=== PATIENT | female | born 1995 | race Caucasian/White ===

== ENCOUNTER 2022-07-31 14:21 | Inpatient (IN) ==
[2022-08-05] MEDS ORDERED: OXYTOCIN 30 UNITS/500 ML BAG IV PRN ×3 (07:43→23:51)
[2022-08-05] MEDS ORDERED: LIDOCAINE 1% LOCAL 20 ML VIAL INFIL PRN (07:43)
[2022-08-05] MEDS ORDERED: PENICILLIN G POTASSIUM 6 MU in DEXTROSE 5% 250 ML IV STA (07:43)
[2022-08-05] MEDS ORDERED: Patient's HEIGHT &/or WEIGHT Needed SCH (08:00)
--- NOTE | 2022-08-05 08:04 | History & Physical Report ---
Date of Service August 05, 2022 Assessment & Plan (1) Supervision of normal intrauterine in primigravida: Plan: Admit for IOL. Pitocin. Plans for epidural. Penicillin for GBS prophylaxis. Admission and Anticipated Discharge Date Admission Date: August 05, 2022 History of Present Illness Chief Complaint: IOL Primary Care Provider: Savannah Maharaj PA-C 27yo @ 40 5/, here for IOL. Small Choroid Plexus Cyst on Anatomy *MFM consult no CERTIFIED MEDICINE AIDE seen Obesity Protocol - BMI 36 *salesforce trainer consult - pt declines *offer a sleep medicine consult if the patient snores - pt declines *Weekly NST's at 36 weeks *Growth US Q 4 wks starting at 32wks. GBS Positive - Treat in labor Allergies Allergy/AdvReac Type Severity Reaction Status Date / Time bee venom Allergy Numbness Uncoded 08/02/22 09:31 Home Medications Medication Instructions Recorded Confirmed Type prenat.vits,osman,ava-stbv-kbbib 1 tab PO DAILY 03/26/22 08/04/22 History Patient History Medical History Gallbladder calculus without cholecystitis and no obstruction Surgical History History of placement of ear tubes S/P tonsillectomy and adenoidectomy Family History Father Heart disease Cancer kidney Grandmother (Maternal) Thyroid disorder Grandmother (Paternal) Cancer Diabetes Grandfather (Paternal) Diabetes Uncle Colorectal cancer GREAT Social History Smoking Status: Never smoker Second Hand Exposure: No; Hx Alcohol Use: No Hx Substance Use: No Preferred Language: Libyan Communication Ability: Effective Food Taster Required: No Beliefs That Will Affect Care: None marital status: marital status details: Claudio (27) [phone] Current Living Situation: Spouse Current Living Situation Comment: lives with spouse, no pets. current occupational status: employed and unemployed current occupation: healthcare Feels Safe at Home: Yes during the past year weight has: remained stable Review of Systems All systems reviewed & are unremarkable except as noted in HPI & below Physical Exam Physical Exam: FHT Cat 1 [place] none SVE 3-4/70/-1 Constitutional: WD/WN, vitals as above Respiratory: normal respiratory effort, lungs clear to auscultation no respiratory distress Cardiovascular: Rate/Rhythm: regular rate and regular rhythm Gastrointestinal (Abdomen): Inspection/Auscultation: abdomen normal to inspection Percussion/Palpation: abdomen soft; abdomen nontender Gravid. No s/s chorio or abruption. Skin: no rashes, warm and dry Psychiatric: A+Ox3, euthymic affect Results & Data ([facility]) Vital Signs (Past 12 Hours) Vital Signs Pulse BP 08/05/22 07:49 93 H 132/82 Coding Level of Care Code None Diagnoses Supervision of normal intrauterine in primigravida Z34.00
[2022-08-05 08:16] LABS: Hematocrit (blood only) 40.2 % (37.0-47.0); Hemoglobin 13.7 g/dl (12.0-16.0); Mean Corpuscular Hemoglobin 30.8 pg (25.0-34.0); Mean Corpuscular Hgb Conc 34.1 g/dL (32.0-36.0); Mean Corpuscular Volume 90.3 fL (80.0-100.0); Mean Platelet Volume 9.6 fL (9.4-12.4); Platelet Count 347 K/uL (130-400); RDW Coefficient of Variation 14.5 % (11.5-14.5); RDW Standard Deviation 47.7 fL (36.4-46.3); Red Blood Count 4.45 M/uL (4.20-5.40); White Blood Count 10.96 K/ul (4.8-10.8)
[2022-08-05] MEDS: LACTATED RINGER'S 1,000 ML IV PRN ×2 (08:26→15:45)
[2022-08-05] MEDS: PENICILLIN G POTASSIUM 3 MU in DEXTROSE 5% 100 ML IV PRN ×2 (12:25→16:43)
--- NOTE | 2022-08-05 15:20 | Labor Progress Brief Note ---
Date of Service August 05, 2022 Subjective comfortable. notes ctx. Assessment & Plan (1) Encounter for induction of labor: (2) GBS (group B Streptococcus carrier), +RV culture, currently : Plan see how arom helps labor pattern. c/w pitocin. fhts categ 1. Admission and Anticipated Discharge Date Admission Date: August 05, 2022 Physical Exam Constitutional: WD/WN, vitals as above Genitourinary: Manual OB Exam: + cervical dilation 4 cm, + cervical effacement 80%, + station -2 and + amniotic fluid (arom) clear OB Exam Monitor Tracing: + external FHT monitor used, + external uterine monitor used (q2-8 pit at 17), + category I and + normal FHT variability Results & Data ([facility]) Vital Signs (Past 12 Hours) Vital Signs Temp Pulse Resp BP 08/05/22 08:40 98.2 F 93 H 20 08/05/22 15:10 138/99 08/05/22 14:09 81 08/05/22 14:09 143/84 H 08/05/22 13:10 75 08/05/22 13:10 132/85 08/05/22 12:09 88 08/05/22 12:09 133/83 08/05/22 12:09 91 H 08/05/22 12:09 131/81 08/05/22 11:58 64 08/05/22 11:58 132/82 08/05/22 11:10 76 08/05/22 11:10 118/68 08/05/22 10:08 77 08/05/22 10:08 131/86 08/05/22 09:08 83 08/05/22 09:08 146/84 H 08/05/22 07:49 98.2 F 93 H 20 132/82 Coding Level of Care Code None Diagnoses Encounter for induction of labor Z34.90 GBS (group B Streptococcus carrier), +RV culture, currently O99.820
[2022-08-05] MEDS ORDERED: ePHEDrine sulfate 50 MG/ML AMP ONE (15:22)
[2022-08-05] MEDS ORDERED: SODIUM CHLORIDE 0.9% INJ 10 ML VIAL ONE (15:22)
[2022-08-05] MEDS ORDERED: BUPIVACAINE 0.25% 30 ML VIAL ONE (15:22)
[2022-08-05] MEDS ORDERED: fentaNYL citrate 100 MCG/2 ML VIAL ONE ×2 (15:22→21:42)
[2022-08-05] MEDS ORDERED: fentaNYL 2MCG/ML ROPIVACAINE 1.25MG/ML 100 ML BAG EPI ONE (15:23)
[2022-08-05] MEDS ORDERED: LIDOCAINE 2%/EPINEPHRINE 1:200,000 20 ML SDV ONE ×2 (15:23→21:42)
[2022-08-05] MEDS ORDERED: NALOXONE HCL 1 MG in SODIUM CHLORIDE 0.9% 1000ML 1,000 ML IV PRN (15:28)
[2022-08-05] MEDS ORDERED: fentaNYL 2MCG/ML ROPIVACAINE 1.25MG/ML 100 ML BAG EPI PRN (15:28)
[2022-08-05] MEDS ORDERED: ePHEDrine sulfate 50 MG/ML AMP IV PRN (15:28)
[2022-08-05] MEDS ORDERED: NALOXONE HCL 0.4 MG/1 ML VIAL/CARP IV PRN (15:28)
[2022-08-05] MEDS ORDERED: diphenhydrAMINE 50 MG/ML VIAL IV PRN (15:28)
[2022-08-05] MEDS ORDERED: NALBUPHINE HCL INJ 10 MG/ML AMP IV PRN (15:28)
--- NOTE | 2022-08-05 15:28 | Anesthesiology Consultation ---
Date of Service August 05, 2022 Assessment & Plan ASA ASA2 Proposed Anesthesia Anesthesia Type: Labor Epidural Risk / Benefits Reviewed With: PT / POA / Parent / Guardian, Accepts Plan and Informed Consent Obtained History Height/Weight Height: 5 ft 3 in Weight: 95.708 kg Allergies Allergy/AdvReac Type Severity Reaction Status Date / Time bee venom Allergy Numbness Uncoded 08/02/22 09:31 Medications Home Medications Medication Instructions Recorded Confirmed Last Taken prenat.vits,osman,cez-hvfj-bdurl 1 tab PO DAILY 03/26/22 08/05/22 08/04/22 Active Medications Generic Name Dose Route Start Last Admin Trade Name Freq PRN Reason Stop Dose Admin Oxytocin 30 units in 500 mls @ 17 mls/hr 08/05/22 07:43 08/05/22 14:00 Pitocin IV 08/07/22 07:42 1.02 units/hr .Q24H PRN 17 mls/hr Labor Induction/Augmentation Titration Protocol 1.02 UNITS/HR Lactated Ringer's 1,000 mls @ 125 mls/hr 08/05/22 07:43 08/05/22 16:07 Lr IV 08/07/22 07:42 125 mls/hr .Q8H PRN Infusion L&D Protocol Protocol Penicillin G Potassium 3 mu/ 106 mls @ 100 mls/hr 08/05/22 10:43 08/05/22 12:25 Dextrose IV 08/15/22 10:42 100 mls/hr Q4H PRN Administration GBS(+) Until Delivery Past Medical History Medical History Gallbladder calculus without cholecystitis and no obstruction Exercise / Class Metabolic Activity II 4-5 Yardwork/Stairs/Walk up hill Past Family History Family History Father Heart disease Cancer kidney Grandmother (Maternal) Thyroid disorder Grandmother (Paternal) Cancer Diabetes Grandfather (Paternal) Diabetes Uncle Colorectal cancer GREAT Past Surgical History Surgical History History of placement of ear tubes S/P tonsillectomy and adenoidectomy Past Anesthesia History No Hx of Anesthesia Complications and No Family Hx of Anesthesia Complications History of PONV No Hx of PONV and No Hx of Motion Sickness Social History Smoking Status: Never smoker Hx Alcohol Use: No Hx Substance Use: No substance use type: does not use Review of Systems denies fever/cough/ colds/ chest pain/ SOB/ ANGEL denies ANGEL Physical Exam Vital Signs Last Vital Signs Temp 36.8 C 08/05/22 08:40 Pulse 99 H 08/05/22 16:30 Resp 20 08/05/22 08:40 BP 145/80 H 08/05/22 16:29 Pulse Ox 100 08/05/22 16:30 ENMT Mouth: no TMJ abnormality and no dentition abnormality Thyromental Distance: > or= 3.5 Finger Breadths Mallampati Class: II Neck neck extension not limited Respiratory normal respiratory effort; no respiratory distress Auscultation: lungs clear to auscultation bilaterally Cardiovascular Rate/Rhythm: regular rate and regular rhythm Neurologic moves all extremities Psychiatric Orientation: alert and oriented x 3 Testing Laboratory Results 08/05/22 07:56 Blood Type O Positive 08/05/22 07:56 Antibody Screen NEGATIVE 08/05/22 07:56
--- NOTE | 2022-08-05 20:07 | Labor Progress Brief Note ---
Date of Service August 05, 2022 Subjective feeling some pressure Assessment & Plan (1) Encounter for induction of labor: (2) GBS (group B Streptococcus carrier), +RV culture, currently : Plan good cx change, c/w pit. fhts categ 2 at times, early decels noted. good variability. adjust position. Admission and Anticipated Discharge Date Admission Date: August 05, 2022 Physical Exam Constitutional: WD/WN, vitals as above Genitourinary: Manual OB Exam: + cervical dilation 8 cm, + cervical effacement 100% and + station 0 OB Exam Monitor Tracing: + external FHT monitor used, + external uterine monitor used, + category II (occas variable decels), + normal FHT variability and + early decelerations present Results & Data ([facility]) Vital Signs (Past 12 Hours) Vital Signs Temp Pulse Resp BP Pulse Ox 08/05/22 08:40 98.2 F 93 H 20 08/05/22 20:00 100 08/05/22 20:00 112 H 08/05/22 19:55 100 08/05/22 19:55 98 H 08/05/22 19:56 100 H 08/05/22 19:56 136/83 08/05/22 19:50 100 08/05/22 19:50 103 H 08/05/22 19:45 100 08/05/22 19:45 89 08/05/22 19:40 100 08/05/22 19:40 90 08/05/22 19:40 131/71 08/05/22 19:35 99 08/05/22 19:35 106 H 08/05/22 19:30 100 08/05/22 19:30 111 H 08/05/22 19:27 93 08/05/22 19:27 94 H 08/05/22 19:25 100 08/05/22 19:25 90 08/05/22 19:25 133/77 08/05/22 19:20 99 08/05/22 19:20 85 08/05/22 19:15 96 08/05/22 19:15 97 H 08/05/22 19:10 99 08/05/22 19:10 102 H 08/05/22 19:10 125/77 08/05/22 19:05 99 08/05/22 19:05 86 08/05/22 19:00 100 08/05/22 19:00 84 08/05/22 18:55 99 08/05/22 18:55 89 08/05/22 18:55 79 08/05/22 18:55 117/66 08/05/22 18:45 98.4 F 08/05/22 18:50 99 08/05/22 18:50 88 08/05/22 18:48 91 08/05/22 18:48 92 H 08/05/22 18:45 100 08/05/22 18:45 92 H 08/05/22 18:42 92 08/05/22 18:42 92 H 08/05/22 18:40 97 08/05/22 18:40 96 H 08/05/22 18:41 96 H 08/05/22 18:41 128/74 08/05/22 18:35 100 08/05/22 18:35 85 08/05/22 18:34 92 08/05/22 18:34 88 08/05/22 18:32 84 08/05/22 18:32 122/67 08/05/22 18:30 98 08/05/22 18:30 92 H 18 08/05/22 18:25 100 08/05/22 18:25 88 08/05/22 18:20 100 08/05/22 18:20 80 08/05/22 18:15 99 08/05/22 18:15 87 08/05/22 18:11 97 H 08/05/22 18:11 142/91 H 08/05/22 18:10 100 08/05/22 18:10 98 H 08/05/22 18:05 100 08/05/22 18:05 86 08/05/22 18:00 100 08/05/22 18:00 98.4 F 99 H 18 08/05/22 17:55 99 08/05/22 17:55 88 08/05/22 17:55 146/100 H 08/05/22 17:50 100 08/05/22 17:51 92 08/05/22 17:50 89 08/05/22 17:51 95 H 08/05/22 17:45 100 08/05/22 17:45 81 08/05/22 17:42 80 08/05/22 17:42 139/77 08/05/22 17:40 100 08/05/22 17:40 80 08/05/22 17:35 100 08/05/22 17:35 87 08/05/22 17:30 18 100 08/05/22 17:30 84 08/05/22 17:26 94 H 08/05/22 17:26 149/87 H 08/05/22 17:25 100 08/05/22 17:25 85 08/05/22 17:20 100 08/05/22 17:20 95 H 08/05/22 17:15 18 100 08/05/22 17:15 82 08/05/22 17:13 94 08/05/22 17:13 104 H 08/05/22 17:11 94 H 08/05/22 17:11 125/64 08/05/22 17:10 100 08/05/22 17:10 89 08/05/22 17:05 100 08/05/22 17:05 88 08/05/22 17:00 18 100 08/05/22 17:00 87 08/05/22 16:55 98 08/05/22 16:55 97 H 08/05/22 16:55 126/77 08/05/22 16:50 100 08/05/22 16:50 101 H 08/05/22 16:50 96 H 08/05/22 16:50 139/89 08/05/22 16:45 100 08/05/22 16:45 102 H 08/05/22 16:45 95 H 08/05/22 16:45 18 139/92 08/05/22 16:40 100 08/05/22 16:40 95 H 08/05/22 16:41 98 H 08/05/22 16:41 145/79 H 08/05/22 16:35 100 08/05/22 16:35 93 H 08/05/22 16:35 144/76 H 08/05/22 16:30 100 08/05/22 16:30 99 H 20 08/05/22 16:29 95 H 08/05/22 16:29 145/80 H 08/05/22 16:27 91 H 08/05/22 16:27 145/79 H 08/05/22 16:25 99 08/05/22 16:25 92 H 20 08/05/22 16:25 156/75 H 08/05/22 16:23 82 08/05/22 16:23 144/70 H 08/05/22 16:21 90 08/05/22 16:21 159/88 H 08/05/22 16:20 99 08/05/22 16:20 92 H 20 08/05/22 16:19 107 H 08/05/22 16:19 148/91 H 08/05/22 16:17 101 H 08/05/22 16:17 162/101 H 08/05/22 16:15 97 08/05/22 16:15 80 08/05/22 16:15 86 08/05/22 16:15 133/92 08/05/22 16:10 97 08/05/22 16:11 91 08/05/22 16:10 96 H 08/05/22 16:11 89 08/05/22 16:10 96 H 08/05/22 16:10 98.2 F 104 H 20 158/95 H 98 08/05/22 16:05 100 08/05/22 16:05 106 H 08/05/22 16:03 91 08/05/22 16:03 93 H 08/05/22 16:00 99 08/05/22 16:00 106 H 08/05/22 15:10 138/99 08/05/22 14:09 81 08/05/22 14:09 143/84 H 08/05/22 13:10 75 08/05/22 13:10 132/85 08/05/22 12:09 88 08/05/22 12:09 133/83 08/05/22 12:09 91 H 08/05/22 12:09 131/81 08/05/22 11:58 64 08/05/22 11:58 132/82 08/05/22 11:10 76 08/05/22 11:10 118/68 08/05/22 10:08 77 08/05/22 10:08 131/86 08/05/22 09:08 83 08/05/22 09:08 146/84 H Coding Level of Care Code None Diagnoses Encounter for induction of labor Z34.90 GBS (group B Streptococcus carrier), +RV culture, currently O99.820
[2022-08-05] MEDS ORDERED: NURSING L&D Epidural Breakthrough Pain Update ONE (20:19)
[2022-08-05] MEDS ORDERED: ROPIVACAINE 0.5% 5 MG/ML 30 ML VIAL ONE (21:42)
--- NOTE | 2022-08-05 21:49 | Communication Note ---
Date of Service: August 05, 2022 pt c/o contraction pain. pt bolused 100 mcg fentanyl, 2 cc of 0.5% ropivicaine, and 2cc of 2% lidocaine with epi. pt vss
--- NOTE | 2022-08-05 23:35 | Delivery Summary ---
Vaginal Delivery Summary Date of Service August 05, 2022 Vaginal Delivery Summary and 2nd Degree LAC The patient had dilated to complete and was pushing. C/C/+2-+3. Given variables and possible late decels was in knee chest for pushing. FHTs not well traced and during placement of FSE trauma to labia caused bright red bleeding for which figure of eight sutures of 4-0 vicryl were placed for hemostasis. She was again pushing in lateral position and unfortunately late decels continued. I was called to another delivery but asked nursing to stop pitocin, start O2, IVF bolus and called my partner to come to hospital to aide in deliveries. FHTs improved and pt continued second stage and making good progress but also becoming exhausted. Offered and accepted vacuum assistance after informed consent. Bladder drained for about 200cc urine under sterile conditions. C/C/+3. Vacuum applied and over 2 contractions cephalic delivered from LEESA position over 2nd degree perineal laceration. Viable male Apgars 7 and 8. Mouth and nose bulb suctioned at perineum. Shoulders and body delivered with ease. Infant was vigorous and crying at . Cord clamped at 30 seconds of life and infant to maternal abdomen where the cord was then doubly clamped and cut. Placenta delivered spontaneously and intact, three-vessel cord. Hemostasis achieved with dilute pitocin and uterine massage. Laceration repaired in layers with 3-0 and 2-0 vicryl. Cord blood and gases sent. Cervix and sulci intact. EBL 300 cc. Mother and baby stable in recovery. Circumstances of delivery and events reviewed in detail with patient. [facility] Vaginal Delivery Charge Delivery Type Details: and 2nd Degree LAC
[2022-08-05] MEDS ORDERED: ACETAMINOPHEN 325 MG TAB PO PRN (23:51)
[2022-08-05] MEDS ORDERED: HYDROCORTISONE ACETATE 25 MG SUPP PR PRN (23:51)
[2022-08-05] MEDS ORDERED: oxyCODONE/ACETAMINOPHEN 5mg/325mg TAB PO PRN (23:51)
[2022-08-05] MEDS ORDERED: DIPHTHERIA/TETANUS/PERTUSSIS 0.5mL SYR/VIAL (Age 7+yrs) IM ONE (23:51)
[2022-08-05] MEDS ORDERED: OXYTOCIN 20 UNITS in LACTATED RINGER'S 1,000 ML IV SCH (23:51)
[2022-08-05] MEDS ORDERED: BENZOCAINE 20% AER SPR 82.5 GM CAN EXT PRN (23:51)
[2022-08-05 23:53] LABS: CO2 Cord Arterial Blood 54 mmHg (39.1-73.5); HCO3 Cord Arterial Blood 18 mmol/L (19.7-28.5); Oxygen Sat Cord Arterial Blood < 60.0 % (<60); PO2 Cord Arterial Blood 17 mmHg (4.1-31.7); pH Cord Arterial Blood 7.12 (7.1-7.38)
[2022-08-05 23:54] LABS: Base Excess Cord Venous Blood -10.4 mEq/L (-7.7-1.9); Cord Venous Blood HCO3 18 mmol/L (18.4-26.8); Cord Venous Blood PCO2 50 mmHg (30.4-57.2); Cord Venous Blood PO2 23 mmHg (14.1-43.3); Cord Venous Blood pH 7.17 (7.20-7.44); O2 Saturation Cord Venous Bld < 60.0 % (<68)
[2022-08-06] MEDS ORDERED: IBUPROFEN 600 MG TAB PO ONE (00:18)
[2022-08-06] MEDS: IBUPROFEN 600 MG TAB PO PRN ×2 (06:15→14:13)
[2022-08-06 06:29] LABS: Hematocrit (blood only) 32.2 % (37.0-47.0); Hemoglobin 10.9 g/dl (12.0-16.0)
--- NOTE | 2022-08-06 06:48 | Obstetrical Progress Note ---
Date of Service <Judit Hernandez - Last Filed: 08/06/22 07:25> August 06, 2022 Assessment & Plan <Judit Hernandez DO - Last Filed: 08/06/22 07:25> (1) Status post vaginal delivery: continue OOB, ambulation, diet as tolerated <Yulissa Mercado MD, FACOG - Last Filed: 08/06/22 07:46> (1) Status post vaginal delivery: Day #:: 1 Subjective <Judit Hernandez - Last Filed: 08/06/22 07:25> Teresa is a 27 y/o female who is now PPD # 1 following spontaneous vaginal delivery at 40 5/7 weeks. Reports feeling well overall this morning. Mild abdominal cramping, pain well managed on analgesics. Voiding. Has not eaten yet. Some persistent lochia with some improvement this morning. Bottle feeding. Review of Systems Denies fever, chills, sweats Denies shortness of breath, difficulty breathing, chest pain, palpitations, chest pressure. Denies breast pain. Denies dysuria. Denies headache or changes in vision. Physical Exam <Judit Hernandez - Last Filed: 08/06/22 07:25> General: Alert, oriented. No acute distress. Cardiac: Regular rate and rhythm, no murmurs/rubs/gallops. Respiratory: Clear to auscultation bilaterally a/p, no wheezes/rales/rhonchi. No increased work of breathing. Symmetrical chest rise. No respiratory distress. Uterus: Uterine fundus firm, palpable 2 cm below umbilicus. Lower Extremities: No lower extremity edema or swelling. No deep calf pain. Results & Data ([facility]) <Judit Hernandez - Last Filed: 08/06/22 07:25> Vital Signs (Past 12 Hours) Vital Signs Temp Pulse Pulse Resp BP BP Pulse Ox 08/06/22 04:02 36.7 C 79 16 123/73 98 08/06/22 01:48 36.8 C 91 H 16 140/83 97 08/06/22 01:31 102 H 130/71 08/06/22 01:16 96 H 126/61 08/06/22 01:01 105 H 125/59 L 08/06/22 00:51 115 H 138/76 08/06/22 00:41 99 H 136/84 08/06/22 00:31 98 H 130/81 08/06/22 00:16 108 H 143/86 H 08/06/22 00:01 101 H 137/79 08/05/22 23:46 115 H 08/05/22 23:46 134/60 08/05/22 23:38 100 08/05/22 23:38 123 H 08/05/22 23:33 100 08/05/22 23:33 130 H 08/05/22 23:32 130 H 08/05/22 23:32 133/74 08/05/22 23:31 123 H 08/05/22 23:31 138/88 08/05/22 23:28 100 08/05/22 23:28 124 H 08/05/22 23:23 100 08/05/22 23:23 123 H 08/05/22 23:21 89 L 08/05/22 23:21 111 H 08/05/22 23:18 100 08/05/22 23:18 121 H 08/05/22 23:13 100 08/05/22 23:13 146 H 08/05/22 23:08 100 08/05/22 23:08 117 H 08/05/22 23:03 100 08/05/22 23:03 139 H 08/05/22 23:01 121 H 08/05/22 23:01 147/81 H 08/05/22 22:58 100 08/05/22 22:58 132 H 08/05/22 22:53 100 08/05/22 22:53 118 H 08/05/22 22:48 100 08/05/22 22:48 136 H 08/05/22 22:48 211/87 H 08/05/22 22:47 81 L 08/05/22 22:47 116 H 08/05/22 22:43 87 L 08/05/22 22:43 137 H 08/05/22 22:38 100 08/05/22 22:38 121 H 08/05/22 22:33 65 L 08/05/22 22:33 145 H 08/05/22 22:28 100 08/05/22 22:28 110 H 08/05/22 22:23 99 01/30/23 22:23 98 H 08/05/22 22:18 100 08/05/22 22:18 99 H 08/05/22 22:16 114 H 08/05/22 22:16 140/96 08/05/22 22:13 94 08/05/22 22:13 119 H 08/05/22 22:08 99 08/05/22 22:08 91 H 08/05/22 22:03 100 08/05/22 22:03 105 H 08/05/22 21:58 100 08/05/22 21:58 101 H 08/05/22 21:57 90 08/05/22 21:57 155/94 H 08/05/22 21:55 95 H 08/05/22 21:55 150/88 H 08/05/22 21:53 100 08/05/22 21:53 91 H 08/05/22 21:53 97 H 08/05/22 21:53 167/92 H 08/05/22 21:51 97 H 08/05/22 21:51 156/87 H 08/05/22 21:50 91 08/05/22 21:50 96 H 08/05/22 21:48 99 08/05/22 21:48 101 H 08/05/22 21:46 110 H 08/05/22 21:46 185/96 H 08/05/22 21:45 100 08/05/22 21:45 104 H 08/05/22 21:40 99 08/05/22 21:40 104 H 08/05/22 21:40 146/90 H 08/05/22 21:35 100 08/05/22 21:35 104 H 08/05/22 21:32 88 L 08/05/22 21:32 106 H 08/05/22 21:30 99 08/05/22 21:30 105 H 08/05/22 21:25 99 08/05/22 21:25 101 H 08/05/22 21:26 106 H 08/05/22 21:26 144/90 H 08/05/22 21:20 100 08/05/22 21:20 110 H 08/05/22 21:15 100 08/05/22 21:15 97 H 08/05/22 21:10 100 08/05/22 21:10 107 H 08/05/22 21:05 100 08/05/22 21:05 98 H 08/05/22 21:00 99 08/05/22 21:00 96 H 08/05/22 20:55 100 08/05/22 20:55 98 H 08/05/22 20:55 101 H 08/05/22 20:55 149/97 H 08/05/22 20:50 100 08/05/22 20:50 92 H 08/05/22 20:45 100 08/05/22 20:45 107 H 08/05/22 20:41 110 H 08/05/22 20:41 147/89 H 08/05/22 20:40 100 08/05/22 20:40 107 H 08/05/22 20:35 100 08/05/22 20:35 106 H 08/05/22 20:30 100 08/05/22 20:30 97 H 08/05/22 20:30 137/81 08/05/22 20:25 100 08/05/22 20:25 102 H 08/05/22 20:20 100 08/05/22 20:20 98 H 08/05/22 20:15 100 08/05/22 20:15 105 H 08/05/22 20:11 104 H 08/05/22 20:11 167/97 H 08/05/22 20:10 100 08/05/22 20:10 99 H 08/05/22 20:05 100 08/05/22 20:05 99 H 08/05/22 20:00 100 08/05/22 20:00 112 H 08/05/22 19:55 100 08/05/22 19:55 98 H 08/05/22 19:56 100 H 08/05/22 19:56 136/83 08/05/22 19:50 100 08/05/22 19:50 103 H 08/05/22 19:45 100 08/05/22 19:45 89 08/05/22 19:40 100 08/05/22 19:40 90 08/05/22 19:40 131/71 08/05/22 19:35 99 08/05/22 19:35 106 H 08/05/22 19:30 100 08/05/22 19:30 111 H 08/05/22 19:27 93 08/05/22 19:27 94 H 08/05/22 19:25 100 08/05/22 19:25 90 08/05/22 19:25 133/77 08/05/22 19:20 99 08/05/22 19:20 85 08/05/22 19:15 96 08/05/22 19:15 97 H 08/05/22 19:10 99 08/05/22 19:10 102 H 08/05/22 19:10 125/77 08/05/22 19:05 99 08/05/22 19:05 86 08/05/22 19:00 100 08/05/22 19:00 84 08/05/22 18:55 99 08/05/22 18:55 89 08/05/22 18:55 79 08/05/22 18:55 117/66 08/05/22 18:50 99 08/05/22 18:50 88 08/05/22 18:48 91 08/05/22 18:48 92 H O2 Del Method 08/06/22 04:02 Room Air 08/06/22 01:48 Room Air 08/06/22 01:31 08/06/22 01:16 08/06/22 01:01 08/06/22 00:51 08/06/22 00:41 08/06/22 00:31 08/06/22 00:16 08/06/22 00:01 08/05/22 23:46 08/05/22 23:46 08/05/22 23:38 08/05/22 23:38 08/05/22 23:33 08/05/22 23:33 08/05/22 23:32 08/05/22 23:32 08/05/22 23:31 08/05/22 23:31 08/05/22 23:28 08/05/22 23:28 08/05/22 23:23 08/05/22 23:23 08/05/22 23:21 08/05/22 23:21 08/05/22 23:18 08/05/22 23:18 08/05/22 23:13 08/05/22 23:13 08/05/22 23:08 08/05/22 23:08 08/05/22 23:03 08/05/22 23:03 08/05/22 23:01 08/05/22 23:01 08/05/22 22:58 08/05/22 22:58 08/05/22 22:53 08/05/22 22:53 08/05/22 22:48 08/05/22 22:48 08/05/22 22:48 08/05/22 22:47 08/05/22 22:47 08/05/22 22:43 08/05/22 22:43 08/05/22 22:38 08/05/22 22:38 08/05/22 22:33 08/05/22 22:33 08/05/22 22:28 08/05/22 22:28 08/05/22 22:23 08/05/22 22:23 08/05/22 22:18 08/05/22 22:18 08/05/22 22:16 08/05/22 22:16 08/05/22 22:13 08/05/22 22:13 08/05/22 22:08 08/05/22 22:08 08/05/22 22:03 08/05/22 22:03 08/05/22 21:58 08/05/22 21:58 08/05/22 21:57 08/05/22 21:57 08/05/22 21:55 08/05/22 21:55 08/05/22 21:53 08/05/22 21:53 08/05/22 21:53 08/05/22 21:53 08/05/22 21:51 08/05/22 21:51 08/05/22 21:50 08/05/22 21:50 08/05/22 21:48 08/05/22 21:48 08/05/22 21:46 08/05/22 21:46 08/05/22 21:45 08/05/22 21:45 08/05/22 21:40 08/05/22 21:40 08/05/22 21:40 08/05/22 21:35 08/05/22 21:35 08/05/22 21:32 08/05/22 21:32 08/05/22 21:30 08/05/22 21:30 08/05/22 21:25 08/05/22 21:25 08/05/22 21:26 08/05/22 21:26 08/05/22 21:20 08/05/22 21:20 08/05/22 21:15 08/05/22 21:15 08/05/22 21:10 08/05/22 21:10 08/05/22 21:05 08/05/22 21:05 08/05/22 21:00 08/05/22 21:00 08/05/22 20:55 08/05/22 20:55 08/05/22 20:55 08/05/22 20:55 08/05/22 20:50 08/05/22 20:50 08/05/22 20:45 08/05/22 20:45 08/05/22 20:41 08/05/22 20:41 08/05/22 20:40 08/05/22 20:40 08/05/22 20:35 08/05/22 20:35 08/05/22 20:30 08/05/22 20:30 08/05/22 20:30 08/05/22 20:25 08/05/22 20:25 08/05/22 20:20 08/05/22 20:20 08/05/22 20:15 08/05/22 20:15 08/05/22 20:11 08/05/22 20:11 08/05/22 20:10 08/05/22 20:10 08/05/22 20:05 08/05/22 20:05 08/05/22 20:00 08/05/22 20:00 08/05/22 19:55 08/05/22 19:55 08/05/22 19:56 08/05/22 19:56 08/05/22 19:50 08/05/22 19:50 08/05/22 19:45 08/05/22 19:45 08/05/22 19:40 08/05/22 19:40 08/05/22 19:40 08/05/22 19:35 08/05/22 19:35 08/05/22 19:30 08/05/22 19:30 08/05/22 19:27 08/05/22 19:27 08/05/22 19:25 08/05/22 19:25 08/05/22 19:25 08/05/22 19:20 08/05/22 19:20 08/05/22 19:15 08/05/22 19:15 08/05/22 19:10 08/05/22 19:10 08/05/22 19:10 08/05/22 19:05 08/05/22 19:05 08/05/22 19:00 08/05/22 19:00 08/05/22 18:55 08/05/22 18:55 08/05/22 18:55 08/05/22 18:55 08/05/22 18:50 08/05/22 18:50 08/05/22 18:48 08/05/22 18:48 <Yulissa Mercado MD, FACOG - Last Filed: 08/06/22 07:46> Co-Signing Physician Notes Resident Physician Supervision Note: I was present with Dr. Hernandez during the history and exam. I discussed the case with the resident and agree with the findings and plan as documented in the note. Any exceptions or clarifications are listed here: stable doing well. bottle feeding, rh pos, ri. abd soft ff 2 down nt, ext nt calves. didn't have appetite last pm but hungry this am. routine care. Documented By: Yulissa Mercado MD, FACOG Resident Activity Tracking <Judit Hernandez, - Last Filed: 08/06/22 07:25> Resident Involvement: Resident Care Provided Care Provided: OB Delivery (Post )
[2022-08-06] MEDS: DOCUSATE SODIUM 100 MG CAP PO SCH ×2 (08:50→20:58)
[2022-08-06] MEDS: PRENATAL VITAMIN 1 TAB PO SCH (08:50)
--- NOTE | 2022-08-06 09:48 | Anesthesia Procedure Note ---
Date of Service August 06, 2022 Anesthesia Post Epidural Note Vital Signs Vital Signs: Temp Pulse Resp BP Pulse Ox O2 Del Method 36.8 C 75 16 118/76 98 08/06/22 07:29 08/06/22 07:29 08/06/22 07:29 08/06/22 07:29 08/06/22 07:29 08/06/22 07:29 Pain Intensity Perineal: Pain Intensity: 3 Notes Mental Status: alert / awake / arousable and participated in evaluation Nausea / Vomiting: adequately controlled Pain: adequately controlled Airway Patency, RR, SpO2: stable & adequate BP & HR: stable & adequate Hydration State: stable & adequate Neuraxial Anesthesia: was administered and sensory block is resolving Anesthetic Complications: no major complications apparent Epidural: Removed without complications and With tip intact
[2022-08-06] MEDS ORDERED: bisacodyL 5 MG TABEC PO SCH (20:00)
[2022-08-07] MEDS: IBUPROFEN 600 MG TAB PO PRN (05:56)
--- NOTE | 2022-08-07 06:10 | Obstetrical Progress Note ---
Date of Service <Judit Hernandez DO - Last Filed: 08/07/22 07:09> August 07, 2022 Assessment & Plan <Juidt Hernandez DO - Last Filed: 08/07/22 07:09> (1) Status post vaginal delivery: continue OOB, ambulation, diet as tolerated Post F/u at 6 weeks Discharge instructions reviewed <Joni Fairchild MD, FACOG - Last Filed: 08/07/22 07:17> (1) Status post vaginal delivery: Subjective <Judit Hernandez - Last Filed: 08/07/22 07:09> Teresa is a 27 y/o female who is now PPD # 2 following spontaneous vaginal delivery at 40 5/7 weeks. Reports feeling well overall this morning. Mild abdominal cramping, pain well managed on analgesics. Voiding. Eating full diet. Ambulating. Some persistent lochia with some improvement this morning. Bottle feeding. Review of Systems Denies fever, chills, sweats Denies shortness of breath, difficulty breathing, chest pain, palpitations, chest pressure. Denies breast pain. Denies dysuria. Denies headache or changes in vision. Physical Exam <Judit Hernandez - Last Filed: 08/07/22 07:09> General: Alert, oriented. No acute distress. Cardiac: Regular rate and rhythm, no murmurs/rubs/gallops. Respiratory: Clear to auscultation bilaterally a/p, no wheezes/rales/rhonchi. No increased work of breathing. Symmetrical chest rise. No respiratory distress. Uterus: Uterine fundus firm, palpable 2 cm below umbilicus. Lower Extremities: No lower extremity edema or swelling. No deep calf pain. Results & Data ([facility]) <Judit Hernandez DO - Last Filed: 08/07/22 07:09> Vital Signs (Past 12 Hours) Vital Signs Temp Pulse Resp BP O2 Del Method 08/06/22 23:30 36.8 C 91 H 16 136/72 Room Air 08/06/22 19:20 37.0 C 90 18 134/84 Room Air <Joni Fairchild MD, FACOG - Last Filed: 08/07/22 07:17> Co-Signing Physician Notes Resident Physician Supervision Note: I was present with Dr. Hernandez during the history and exam. I discussed the case with the resident and agree with the findings and plan as documented in the note. Any exceptions or clarifications are listed here: [None] Documented By: Joni Fairchild MD, FACOG Resident Activity Tracking <Judit Hernandez, DO - Last Filed: 08/07/22 07:09> Resident Involvement: Resident Care Provided Care Provided: OB Delivery (Post )
[2022-08-07] MEDS: DOCUSATE SODIUM 100 MG CAP PO SCH (08:17)
[2022-08-07] MEDS: PRENATAL VITAMIN 1 TAB PO SCH (08:17)
[2022-08-07] MEDS ORDERED: bisacodyL 10 MG SUPP PR PRN (23:51)
--- NOTE | 2022-08-12 10:27 | Discharge Summary ---
Date of Service Date of admission: August 05, 2022 Date of discharge: August 08, 2022 Admission HPI Per Admitting Provider 27yo @ 40 11/10, here for IOL. 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 GBS Positive - Treat in labor Hospital Course (1) Obesity affecting : Patient admitted for postdates induction and ultimately dilated to complete. Due to maternal exhaustion, outlet vacuum assisted vaginal delivery took placed. See vaginal delivery summary for more detail. She was sent home on her day 2 in stable condition. Coding Level of Care Code None Diagnoses Obesity affecting O99.210
== END 2022-08-07 13:21 | disposition home or self-care (01) | DRG 806 ==
LOC: 4S1 08-05 07:25 → 4E2 08-06 02:06